=== PATIENT | male | born 1935 | race Caucasian/White ===

== ENCOUNTER 2017-08-27 19:07 | Emergency (ER) | payer MEDICARE, MEDICAID ==
[~2017-08-27] VITALS: Ht 172.7 cm; Wt 68.0 kg
[~2017-08-27 19:07] MED LIST: AMLO5TAB2 PO; ASPI-1152 PO; DUTA0.5C15 PO; METF850T2 PO; OXYB15TA PO; REPA2TAB9 PO; ROSU5TAB9 PO; VALS160T24 PO
[2017-08-27 19:19] VITALS: BP 151/74
== END 2017-08-27 19:25 | disposition left against medical advice (07) ==
LOC: ER 19:08
DX: Z53.21 Procedure and treatment not carried out due to patient leaving prior to being seen by health care provider (principal)
CPT/HCPCS: A4606; Z7610

== ENCOUNTER 2025-02-03 01:19 | Inpatient (IN) | payer MEDICARE, OTHER ==
[~2025-02-03] VITALS: Ht 172.7 cm; Wt 64.4 kg
[~2025-02-03 01:19] MED LIST changes: +AMLO-212 PO; -AMLO5TAB2 PO; -ASPI-1152 PO; +ASPI-1420 PO; -DUTA0.5C15 PO; +DUTA0.5C37 PO; +METF-441 PO; -METF850T2 PO; +REPA2TAB10 PO; -REPA2TAB9 PO; +ROSU5TAB13 PO; -ROSU5TAB9 PO; -VALS160T24 PO; +VALS160T29 PO
[2025-02-03 02:11] LABS: BASOPHILS % (AUTO) 0.1 % (0.0-2.0); EOSINOPHILS # (AUTO) 0.1 K/uL (0.0-0.7); EOSINOPHILS % (AUTO) 0.7 % (0.0-6.0); HEMATOCRIT 37 % (39-51); HEMOGLOBIN 11.9 g/dL (13.5-17.5); LYMPHOCYTES # (AUTO) 1.5 K/uL (0.8-4.8); LYMPHOCYTES % (AUTO) 9.4 % (20.0-44.0); MEAN CORPUSCULAR HEMOGLOBIN 28 PG (26.0-33.0); MEAN CORPUSCULAR HGB CONC 32 g/dl (31.0-36.0); MEAN CORPUSCULAR VOLUME 87 fL (80-96); MONOCYTES # (AUTO) 0.7 K/uL (0.1-1.30); MONOCYTES % (AUTO) 4.3 % (2.0-12.0); NEUTROPHILS # (AUTO) 13.2 K/uL (1.8-8.9); NEUTROPHILS % (AUTO) 85.5 % (43.0-81.0); PLATELET COUNT (AUTO) 331 K/uL (150-450); RED BLOOD CELL COUNT(AUTO) 4.22 MIL/uL (4.5-6.0); RED CELL DISTRIBUTION WIDTH 18.4 % (11.5-15.0); WHITE BLOOD COUNT (AUTO) 15.5 K/uL (4.3-11.0)
[2025-02-03 02:25] LABS: INR 0.97 (0.91-1.10); PARTIAL THROMBOPLASTIN TIME 25.9 SEC (24.3-34.3); PROTHROMBIN TIME 10.3 SECS (9.2-11.1)
[2025-02-03 02:43] LABS: CALCIUM, SERUM 9.6 mg/dL (8.5-10.1); CARBON DIOXIDE 25 mmol/L (21-32); CHLORIDE 103 mmol/L (98-107); CREATININE 1.5 mg/dL (0.6-1.3); GLUCOSE 116 mg/dL (74-106); SODIUM SERUM 139 mmol/L (136-145); UREA NITROGEN, BLOOD 35 mg/dL (7-18)
[2025-02-03 02:47] LABS: ALANINE AMINOTRANSFERASE 32 U/L (12-78); ALBUMIN 3.7 g/dL (3.4-5.0); ALKALINE PHOSPHATASE 84 U/L (46-116); ASPARTATE AMINOTRANSFERASE 33 U/L (15-37); BILIRUBIN,DIRECT 0.3 mg/dL (0.0-0.2); TOTAL PROTEIN, SERUM 7.4 g/dL (6.4-8.2)
[2025-02-03 02:48] LABS: LACTIC ACID 2.3 mmol/L (0.4-2.0)
[2025-02-03] MEDS ORDERED: PIPERACI/TAZO 3.375GM/D5W 50ML PB IV ONE (03:02)
[2025-02-03] MEDS: IV NS 0.9% 1,000 ML IV ONE ×2 (03:10)
[2025-02-03] MEDS: PIPERACILLIN /TAZOBACTAM 3.375 G in IV D5W 50 ML IV ONE (03:10)
[2025-02-03] MEDS ORDERED: MAG HYDROX/AL HYDROX/SIMETH 30 ML UDC PO PRN (03:30)
[2025-02-03] MEDS ORDERED: ONDANSETRON HCL/PF 4 MG/2 ML VIAL IVP PRN (03:30)
[2025-02-03] MEDS ORDERED: MAGNESIUM HYDROXIDE 30 ML UDC PO PRN (03:30)
[2025-02-03 03:38] LABS: APPEARANCE,URINE CLEAR (CLEAR); BILIRUBIN,URINE NEGATIVE (NEGATIVE); BLOOD, URINE 2+ Ery/uL (NEGATIVE); COLOR,URINE YELLOW (YELLOW); KETONES,URINE NEGATIVE (NEGATIVE); LEUKOCYTE ESTERASE ,URINE NEGATIVE (NEGATIVE); NITRITE, URINE NEGATIVE (NEGATIVE); PROTEIN,URINE 2+ mg/dl (NEGATIVE); UGLUCOSE 1+ mg/dL (NEGATIVE); UROBILINOGEN,URINE 0.2 EU/dL (0.2)
[2025-02-03 03:42] LABS: ADD URINE CULTURE NO; BACTERIA,URINE Rare /HPF (None Seen); SQUAMOUS EPITHELIAL CELL,UR Few /HPF (None Seen); WBC,URINE 0-2 /HPF (0-3)
[2025-02-03] MEDS: ENOXAPARIN SODIUM 40 MG/0.4 ML DISP.SYRIN SQ SCH (04:38)
[2025-02-03 05:01] VITALS: BP 123/81; TEMP 97.3; O2SAT 100
[2025-02-03 05:10] VITALS: BP 123/81; TEMP 97.3; O2SAT 98
[2025-02-03] MEDS: IV NS 0.9% 1,000 ML IV PRN (05:40)
[2025-02-03] MEDS: DEXTROSE 50%-WATER 50 ML DISP.SYRIN IV PRN (05:59)
[2025-02-03] MEDS: BLOOD SUGAR DIAGNOSTIC 1 EACH STRIP IN SCH (05:59)
[2025-02-03 07:00] VITALS: BP 126/63; TEMP 97.5; O2SAT 97
[2025-02-03 07:46] LABS: BASOPHILS % (AUTO) 0.3 % (0.0-2.0); EOSINOPHILS % (AUTO) 0.2 % (0.0-6.0); HEMATOCRIT 36 % (39-51); HEMOGLOBIN 11.2 g/dL (13.5-17.5); LYMPHOCYTES # (AUTO) 0.8 K/uL (0.8-4.8); LYMPHOCYTES % (AUTO) 7.4 % (20.0-44.0); MEAN CORPUSCULAR HEMOGLOBIN 28 PG (26.0-33.0); MEAN CORPUSCULAR HGB CONC 31 g/dl (31.0-36.0); MEAN CORPUSCULAR VOLUME 90 fL (80-96); MONOCYTES # (AUTO) 0.4 K/uL (0.1-1.30); MONOCYTES % (AUTO) 3.8 % (2.0-12.0); NEUTROPHILS # (AUTO) 9.2 K/uL (1.8-8.9); NEUTROPHILS % (AUTO) 88.3 % (43.0-81.0); PLATELET COUNT (AUTO) 256 K/uL (150-450); RED BLOOD CELL COUNT(AUTO) 3.98 MIL/uL (4.5-6.0); RED CELL DISTRIBUTION WIDTH 18.6 % (11.5-15.0); WHITE BLOOD COUNT (AUTO) 10.4 K/uL (4.3-11.0)
[2025-02-03 07:52] LABS: LACTIC ACID 1.6 mmol/L (0.4-2.0)
[2025-02-03] MEDS ORDERED: FURO20TA4 PO (08:04)
[2025-02-03] MEDS ORDERED: OXYB15TA19 PO (08:04)
[2025-02-03] MEDS ORDERED: INSU100I30 SQ ×2 (08:04)
[2025-02-03] MEDS ORDERED: LEVO88TA5 PO (08:04)
[2025-02-03] MEDS ORDERED: ACET325T53 PO (08:04)
[2025-02-03] MEDS ORDERED: DOCU250C14 PO (08:04)
[2025-02-03] MEDS ORDERED: ASCO500T10 PO (08:04)
[2025-02-03] MEDS ORDERED: INSU100V39 SQ (08:04)
[2025-02-03] MEDS ORDERED: SACU1TAB7 PO (08:04)
[2025-02-03] MEDS ORDERED: DAPA10TA PO (08:04)
[2025-02-03] MEDS ORDERED: AMIN30LI66 PO (08:04)
[2025-02-03] MEDS ORDERED: ESOM40CA PO (08:04)
[2025-02-03] MEDS ORDERED: ESCI5TAB PO (08:04)
[2025-02-03] MEDS ORDERED: LINA145C PO (08:04)
[2025-02-03] MEDS ORDERED: MULT-594 PO (08:04)
[2025-02-03] MEDS: PANTOPRAZOLE 40 MG TABLET.DR PO SCH (08:53)
[2025-02-03 09:45] LABS: ALBUMIN 3.3 g/dL (3.4-5.0); BILIRUBIN,TOTAL 0.7 mg/dL (0.2-1.0); MAGNESIUM 2.2 mg/dL (1.8-2.4); PHOSPHORUS 3.6 mg/dL (2.5-4.9); TOTAL PROTEIN, SERUM 6.8 g/dL (6.4-8.2)
[2025-02-03 09:54] LABS: BILIRUBIN,DIRECT 0.2 mg/dL (0.0-0.2); CALCIUM, SERUM 8.7 mg/dL (8.5-10.1); CREATININE 1.4 mg/dL (0.6-1.3)
[2025-02-03] MEDS: PIPERACILLIN /TAZOBACTAM 3.375 G in IV D5W 100 ML IV SCH (10:11)
[2025-02-03 10:31] LABS: THYROID STIMULATING HORMONE 3.36 uIU/mL (0.358-3.74)
[2025-02-03 16:00] VITALS: BP 133/55; TEMP 98.6; O2SAT 95
[2025-02-03] MEDS: INSULIN REGULAR, HUMAN 100 UNIT/ML 3 ML VIAL SQ PRN (17:39)
[2025-02-03 20:00] VITALS: BP 144/63; TEMP 98.4; O2SAT 98
[2025-02-03 21:10] VITALS: BP 144/63; TEMP 98.4; O2SAT 98
[2025-02-04 06:15] LABS: APPEARANCE,URINE CLEAR (CLEAR); BILIRUBIN,URINE NEGATIVE (NEGATIVE); BLOOD, URINE 2+ Ery/uL (NEGATIVE); COLOR,URINE YELLOW (YELLOW); KETONES,URINE NEGATIVE (NEGATIVE); LEUKOCYTE ESTERASE ,URINE NEGATIVE (NEGATIVE); NITRITE, URINE NEGATIVE (NEGATIVE); PROTEIN,URINE 2+ mg/dl (NEGATIVE); UGLUCOSE 1+ mg/dL (NEGATIVE); UROBILINOGEN,URINE 0.2 EU/dL (0.2)
[2025-02-04 06:17] LABS: ADD URINE CULTURE NO; BACTERIA,URINE Rare /HPF (None Seen); SQUAMOUS EPITHELIAL CELL,UR Moderate /HPF (None Seen)
[2025-02-04 06:38] LABS: BASOPHILS % (AUTO) 0.3 % (0.0-2.0); EOSINOPHILS # (AUTO) 0.1 K/uL (0.0-0.7); EOSINOPHILS % (AUTO) 1.9 % (0.0-6.0); HEMATOCRIT 33 % (39-51); HEMOGLOBIN 10.7 g/dL (13.5-17.5); LYMPHOCYTES % (AUTO) 32.9 % (20.0-44.0); MEAN CORPUSCULAR HEMOGLOBIN 28 PG (26.0-33.0); MEAN CORPUSCULAR HGB CONC 33 g/dl (31.0-36.0); MEAN CORPUSCULAR VOLUME 86 fL (80-96); MONOCYTES # (AUTO) 0.5 K/uL (0.1-1.30); MONOCYTES % (AUTO) 8.6 % (2.0-12.0); NEUTROPHILS # (AUTO) 3.4 K/uL (1.8-8.9); NEUTROPHILS % (AUTO) 56.3 % (43.0-81.0); PLATELET COUNT (AUTO) 284 K/uL (150-450); RED BLOOD CELL COUNT(AUTO) 3.78 MIL/uL (4.5-6.0); RED CELL DISTRIBUTION WIDTH 18.2 % (11.5-15.0)
[2025-02-04 07:26] LABS: ALBUMIN 2.9 g/dL (3.4-5.0); BILIRUBIN,TOTAL 0.7 mg/dL (0.2-1.0); CALCIUM, SERUM 8.5 mg/dL (8.5-10.1); CREATININE 1.3 mg/dL (0.6-1.3); MAGNESIUM 2.1 mg/dL (1.8-2.4); PHOSPHORUS 3.5 mg/dL (2.5-4.9); POTASSIUM 4.5 mmol/L (3.5-5.1); TOTAL PROTEIN, SERUM 6.3 g/dL (6.4-8.2)
[2025-02-04 07:28] LABS: CREATININE, URINE 37.1 MG/DL (30.0-125.0); URINE TOTAL PROTEIN 98.4 mg/dL (0-11.9)
[2025-02-04 08:00] VITALS: BP 183/64; TEMP 98.1; O2SAT 96
[2025-02-04 16:00] VITALS: BP 173/70; TEMP 98.2; O2SAT 94
[2025-02-04] MEDS: ACETAMINOPHEN 325 MG TABLET PO PRN (17:34)
[2025-02-04 20:00] VITALS: BP 153/66; TEMP 98.4; O2SAT 96
[2025-02-05 07:11] LABS: PTH, INTACT 39 pg/mL (15-65)
[2025-02-05 08:00] VITALS: BP 172/68; TEMP 98.2; O2SAT 96
[2025-02-05 13:15] VITALS: BP 173/66
[2025-02-05] MEDS: CLONIDINE HCL 0.1 MG TABLET PO PRN (13:15)
[2025-02-08 10:07] LABS: *SPE A/G RATIO 1.1 (0.7-1.7); *SPE ALBUMIN 3.1 g/dL (2.9-4.4); *SPE ALPHA-1-GLOBULIN 0.3 g/dL (0.0-0.4); *SPE ALPHA-2-GLOBULIN 0.5 g/dL (0.4-1.0); *SPE BETA GLOBULIN 0.9 g/dL (0.7-1.3); *SPE GLOBULIN, TOTAL 2.7 g/dL (2.2-3.9); *SPE M-SPIKE Not Observed g/dL (Not Observed); *SPE PROTEIN TOTAL 5.8 g/dL (6.0-8.5)
== END 2025-02-05 15:12 | DRG 918 ==
LOC: ER 01:25 → TELE 03:47 → MED 09:50
PROVIDERS: ADMIT Internal Medicine; ATTEND Internal Medicine
DX: T38.3X1A Poisoning by insulin and oral hypoglycemic [antidiabetic] drugs, accidental (unintentional), initial encounter (principal); I13.0 Hypertensive heart and chronic kidney disease with heart failure and stage 1 through stage 4 chronic kidney disease, or unspecified chronic kidney disease; I50.22 Chronic systolic (congestive) heart failure; E87.20 Acidosis, unspecified; E11.649 Type 2 diabetes mellitus with hypoglycemia without coma; I25.10 Atherosclerotic heart disease of native coronary artery without angina pectoris; E11.22 Type 2 diabetes mellitus with diabetic chronic kidney disease; D64.9 Anemia, unspecified; R33.8 Other retention of urine; Z66 Do not resuscitate; N18.9 Chronic kidney disease, unspecified; E83.9 Disorder of mineral metabolism, unspecified; Y92.129 Unspecified place in nursing home as the place of occurrence of the external cause
CPT/HCPCS: 36415; 71045-TC; 76770-TC; 80048-TC; 80053-TC; 80076-TC; 81001; 82550-TC; 82570-TC; 82962-TC; 83605-TC; 83735-TC; 83970; 84100-TC; 84155; 84165; 84300-TC; 84443-TC; 85025-TC; 85730-TC; 87040-TC; 87081-TC; 87086-TC; A4223; G0378; J1650; J1815; J2543; J7030; J7060